=== PATIENT | female | born 1970 | race Hispanic/Latino ===

== ENCOUNTER 2016-06-09 23:46 | Emergency (ER) | payer SELFPAY ==
[2016-06-10 00:07] VITALS: BP 142/100
[2016-06-10 04:26] LABS: Basophils % (Auto) 0.6 % (0.0-1.8); Eosinophils % (Auto) 4.4 % (0.0-4.3); Hematocrit 45.6 % (30.3-42.9); Hemoglobin 15.1 gm/dl (10.1-14.3); Mean Corpuscular HGB Conc 33 % (30-34); Mean Corpuscular Hemoglobin 29 pg (28-32); Mean Corpuscular Volume 88 fl (79-97); Platelet Count 227 K/mm3 (140-440); Red Blood Count 5.18 M/mm3 (3.65-5.03); Red Cell Distribution Width 13.1 % (13.2-15.2); White Blood Count 7.9 K/mm3 (4.5-11.0)
[2016-06-10 04:36] LABS: INR 0.97 (0.87-1.13)
[2016-06-10 04:37] LABS: Partial Thromboplastin Time 28.2 Sec. (24.2-36.6)
[2016-06-10 04:47] LABS: Anion Gap 18 mmol/L; BUN/Creatinine Ratio 18.33; Blood Urea Nitrogen 11 mg/dL (7-17); Calcium 9.3 mg/dL (8.4-10.2); Carbon Dioxide 25 mmol/L (22-30); Chloride 98.5 mmol/L (98-107); Glucose 100 mg/dL (65-100); Potassium 4.7 mmol/L (3.6-5.0); Sodium 137 mmol/L (137-145)
--- NOTE | 2016-06-11 00:23 | ED Elopement Review ---
ED Pt Elopement review - Results review Lab results: Laboratory Tests 06/10/16 06/10/16 06/10/16 04:16 04:16 04:16 WBC 7.9 RBC 5.18 H Hgb 15.1 H Hct 45.6 H MCV 88 MCH 29 MCHC 33 RDW 13.1 L Plt Count 227 Lymph % (Auto) 42.9 H [place] % (Auto) 8.1 H Eos % (Auto) 4.4 H Baso % (Auto) 0.6 Lymph # 3.4 [place] # 0.6 Eos # 0.3 Baso # 0.0 Seg Neutrophils % 44.0 Seg Neutrophils # 3.5 PT 12.8 INR 0.97 APTT 28.2 Sodium 137 Potassium 4.7 Chloride 98.5 Carbon Dioxide 25 Anion Gap 18 BUN 11 Creatinine 0.6 L Estimated GFR > 60 BUN/Creatinine Ratio 18.33 Glucose 100 Calcium 9.3 HCG, Qual 06/10/16 04:16 WBC RBC Hgb Hct MCV MCH MCHC RDW Plt Count Lymph % (Auto) [place] % (Auto) Eos % (Auto) Baso % (Auto) Lymph # [place] # Eos # Baso # Seg Neutrophils % Seg Neutrophils # PT INR APTT Sodium Potassium Chloride Carbon Dioxide Anion Gap BUN Creatinine Estimated GFR BUN/Creatinine Ratio Glucose Calcium HCG, Qual Negative - Call Back decision Pt Call Back Decision: No action required
== END 2016-06-10 04:30 | disposition left against medical advice (07) ==
LOC: ED 23:46
DX: R06.00 Dyspnea, unspecified (principal); I10 Essential (primary) hypertension; R42 Dizziness and giddiness; M25.561 Pain in right knee; M25.562 Pain in left knee; Z53.21 Procedure and treatment not carried out due to patient leaving prior to being seen by health care provider; Z88.0 Allergy status to penicillin
CPT/HCPCS: 36415; 80048; 84703; 85025; 85610; 85730